=== PATIENT | female | born 1955 | race Asian ===

== ENCOUNTER 2020-10-11 14:02 | Emergency (ER) | payer OTHER, MEDICARE, MEDICAID ==
[~2020-10-11] VITALS: Ht 160 cm; Wt 75.3 kg
[2020-10-11 14:06] VITALS: BP_SYST 122
[2020-10-11 14:54] VITALS: BP_SYST 122
== END 2020-10-11 15:35 | disposition home or self-care (01) ==
LOC: EDBD 14:02 → SED 14:02
DX: S16.1XXA Strain of muscle, fascia and tendon at neck level, initial encounter (principal); S20.219A Contusion of unspecified front wall of thorax, initial encounter; V49.69XA Unspecified car occupant injured in collision with other motor vehicles in traffic accident, initial encounter; Y93.89 Activity, other specified; Y92.89 Other specified places as the place of occurrence of the external cause; Y99.8 Other external cause status
CPT/HCPCS: 71045; 72040-TC; 99284